=== PATIENT | male | born 1970 | race Caucasian/White ===

== ENCOUNTER 2016-06-06 14:32 | Emergency (ER) | payer MEDICAID ==
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
[2016-06-06 14:45] VITALS: BP 111/77; PULSE 87; RESP 18; TEMP 97.3
[2016-06-06 15:03] VITALS: O2SAT 91
== END 2016-06-06 15:11 | disposition home or self-care (01) ==
LOC: EDUNIT#
DX: F10.120 Alcohol abuse with intoxication, uncomplicated (principal); I10 Essential (primary) hypertension; F17.200 Nicotine dependence, unspecified, uncomplicated

== ENCOUNTER 2016-09-28 19:09 | Emergency (ER) | payer MEDICAID ==
[2016-09-28 19:21] VITALS: BP 103/66; RESP 20; TEMP 97.7
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
--- NOTE | 2016-09-28 19:22 | CPEKG ---
Heart Rate: 112 RR Interval: 536 P-R Interval: 168 QRSD Interval: 104 QT Interval: 340 QTC Interval: 464 P [place]: 31 QRS [place]: -22 T Wave [place]: 38 EKG Severity - ABNORMAL ECG - EKG Impression: SINUS TACHYCARDIA EKG Impression: INCOMPLETE RBBB AND LAFB EKG Impression: CONSIDER RIGHT VENTRICULAR HYPERTROPHY Electronically Signed By: Pee Rashid 28-Sep-2016 19:23:20
[2016-09-28 19:44] VITALS: PULSE 104; O2SAT 93
== END 2016-09-28 19:43 | disposition home or self-care (01) ==
LOC: EDUNIT#
DX: F10.920 Alcohol use, unspecified with intoxication, uncomplicated (principal); T75.4XXA Electrocution, initial encounter; I10 Essential (primary) hypertension; F17.200 Nicotine dependence, unspecified, uncomplicated